=== PATIENT | male | born 1980 | race African-American/Black ===

== ENCOUNTER 2019-07-02 16:14 | Emergency (ER) | payer OTHER ==
[~2019-07-02] VITALS: Ht 172.7 cm; Wt 147.0 kg
[2019-07-02 16:17] VITALS: BP 0/0
== END 2019-07-02 16:56 | disposition home or self-care (01) ==
LOC: ER 16:14
DX: M79.642 Pain in left hand (principal); M79.641 Pain in right hand; F41.1 Generalized anxiety disorder; F43.0 Acute stress reaction; Y04.0XXA Assault by unarmed brawl or fight, initial encounter; Y93.89 Activity, other specified; Y92.813 Airplane as the place of occurrence of the external cause; I10 Essential (primary) hypertension
CPT/HCPCS: 99283